=== PATIENT | female | born 1995 | race Caucasian/White ===

== ENCOUNTER 2022-02-19 01:21 | Emergency (ER) | payer OTHER, SELFPAY ==
[2022-02-19 01:32] VITALS: BP 110/77; PULSE 99; RESP 20; TEMP 36.9; O2SAT 98; BMI 35.4
[2022-02-19 04:32] VITALS: BP 125/64; PULSE 100; RESP 14; TEMP 37.7; O2SAT 96
[2022-02-19 05:20] LABS: Appearance Urine CLEAR; Color Urine DK YELLOW; Glucose Urine UA NEG (NEG); Leukocyte Esterase Urine NEG (NEG); Nitrite Urine NEG (NEG); Specific Gravity - Urine 1.015 (1.005-1.025); UACC Culture Trigger NO; Urine Blood NEG (NEG); Urine Ketones 15 MG/DL (NEG); Urine Protein 1+ MG/DL (NEG-TRACE)
[2022-02-19 05:22] LABS: UPreg QC Valid YES; Urine Pregnancy NEGATIVE (NEGATIVE)
[2022-02-19] MEDS: Acetaminophen 325 MG TABLET 975 MG PO (05:23)
[2022-02-19] MEDS: Lidocaine 4 % Patch ADH..PATCH 1 PATCH TRANSDERMA (05:24)
[2022-02-19] MEDS: Ketorolac Tromethamine 15 MG/ML VIAL IM (05:25)
[2022-02-19 05:29] LABS: Bacteria Urine 2+ /LPF; Mucus Urine 2+ /LPF; RBC Urine 0-2 /HPF (0); Squamous Epithelial Cell Urine 2+ /LPF; WBC Urine 0-2 /HPF (0-4)
--- NOTE | 2022-02-19 06:26 | ED.GENADULT ---
HPI - General Adult General Chief complaint: Back Pain/Injury Stated complaint: severe pain, crushed L1 vertebrae 1yr ago Time Seen by Provider: 02/19/22 04:54 Source: patient Mode of arrival: ambulatory History of Present Illness HPI narrative: 26-year-old female with presentation for lower back pain but also reports that she has had to COVID-19 positive exposures. Patient reports body aches, headaches, sore throat but denies any urinary symptoms. Related Data Allergies Allergy/AdvReac Type Severity Reaction Status Date / Time trazodone Allergy Facial Verified 02/19/22 05:05 Swelling Review of Systems Review of Systems: Pertinent positives and negatives as stated in HPI 10 point review systems is otherwise negative PE PMFSH Past Medical History Source: nursing notes reviewed Social History Social History Advance Directives: No Advance Directives Information Provided: No Physical Exam ED Vital Signs: Vital Signs - 24 hr 02/19/22 01:32 02/19/22 04:32 02/19/22 06:27 Temperature 98.5 F 99.9 F Pulse Rate 99 100 89 Respiratory Rate 20 14 16 Blood Pressure 110/77 125/64 108/53 L Pulse Oximetry 98 96 95 BMI result Body Mass Index 35.4 VITAL SIGNS: Reviewed. GENERAL: Well developed, well nourished, in no acute distress. HEAD: Normocephalic/atraumatic EYES: PERRLA, EOMI EARS: Ext canals without abnormality, TMs non-bulging and non-erythematous NOSE: Nares patent bilateral OROPHARYNX: no oral lesions noted, posterior pharynx clear and non-erythematous without noted tonsillar enlargement/erythema/exudates NECK: Supple, no adenopathy LUNGS: Normal breath sounds. No adventitious sounds or accessory muscle use. SpO2<98> CARDIOVASCULAR: Regular rate and rhythm without noted murmurs ABDOMEN: Soft, non-tender, non-distended with bowel sounds. SKIN: Inspection of the skin reveals no rashes, but diaphoretic NEUROLOGIC: Alert and oriented x 4. Strength and sensation to light touch were grossly intact x 4. Course Course Course Narrative: 26-year-old female with history and clinical presentation initially suggestive of chronic lower back pain without evidence of renal colic, cauda equina, UTI and later patient endorse that she had had a COVID-19 exposure and upon testing was noted to be positive. Review of all investigations otherwise negative for acute findings. Patient otherwise discharged home in stable condition with diagnosis of COVID-19. Medical Decision Making Lab Data Labs: Lab Results 02/19/22 02/19/22 02/19/22 Range/Units 05:07 05:07 06:30 Urine Color DK YELLOW Urine Appearance CLEAR Urine pH 7.0 (5.0-8.0) Ur Specific [place] 1.015 (1.005-1.025) Urine Protein 1+ H (NEG-TRACE) MG/DL Urine Glucose (UA) NEG (NEG) MG/DL Urine Ketones 15 (NEG) MG/DL Urine Blood NEG (NEG) Urine Nitrite NEG (NEG) Ur Leukocyte Esterase NEG (NEG) Urine RBC 0-2 (0) /HPF Urine WBC 0-2 (0-4) /HPF Ur Squamous Epith Cells 2+ /LPF Urine Bacteria 2+ /LPF Urine Mucus 2+ /LPF Urine Test NEGATIVE (NEGATIVE) COVID-19 (MATTHEW) (Negative) COVID-19 Clin Com Influenza Type A (ELLA) Negative (Negative) Influenza Type B (ELLA) Negative (Negative) Influenza A & B Note See Note 02/19/22 Range/Units 06:30 Urine Color Urine Appearance Urine pH (5.0-8.0) Ur Specific [place] (1.005-1.025) Urine Protein (NEG-TRACE) MG/DL Urine Glucose (UA) (NEG) MG/DL Urine Ketones (NEG) MG/DL Urine Blood (NEG) Urine Nitrite (NEG) Ur Leukocyte Esterase (NEG) Urine RBC (0) /HPF Urine WBC (0-4) /HPF Ur Squamous Epith Cells /LPF Urine Bacteria /LPF Urine Mucus /LPF Urine Test (NEGATIVE) COVID-19 (MATTHEW) Positive A (Negative) COVID-19 Clin Com See Note Influenza Type A (ELLA) (Negative) Influenza Type B (ELLA) (Negative) Influenza A & B Note Discharge Plan Discharge Clinical Impression: Viral syndrome, Lab test positive for detection of COVID-19 virus Patient Disposition: Home, Self-Care Instructions: Viral Syndrome (ED), COVID-19 (Coronavirus Disease 2019) (ED) Additional Instructions: 1. Tylenol 1000 mg, orally, every 6 hours as needed for pain control, body aches, temperatures greater than 100.4, headaches. Do not exceed 4000 mg within 24 hours. Ibuprofen 400 mg, orally with milk or food, every 6 hours as needed for pain control, body aches, headaches, temperatures greater than 100.4. 2. Drink plenty of water. 3. Must isolate for 5 days and then follow all [place] and Federal guidelines for COVID-19. 4. Follow-up with primary care provider in the next 1-2 days for re-evaluation via telemedicine appointment. Return to the ER for worsening symptoms. Stand Alone Forms: Work/School Release
[2022-02-19 06:27] VITALS: BP 108/53; PULSE 89; RESP 16; O2SAT 95
[2022-02-19 06:51] LABS: COVID-19 Test Positive (Negative); IDNOW Serial# 08D9AD1C
[2022-02-19 06:54] LABS: Influenza A Negative (Negative); Influenza B2 Negative (Negative)
--- NOTE | 2022-02-19 07:04 | PC.NURSE ---
Report given to MICHAEL Nieves
== END 2022-02-19 07:36 | disposition home or self-care (01) ==
PROVIDERS: Emergency Provider Student in an Organized Health Care Education/Training Program
DX: U07.1 COVID-19 (principal); M54.50 Low back pain, unspecified; Z79.899 Other long term (current) drug therapy
CPT/HCPCS: 81001; 81025; 87502; 87635; 96372; 99283; 99284; J1885